=== PATIENT | male | born 1995 | race Caucasian/White ===

== ENCOUNTER 2017-02-25 20:56 | Inpatient (IN) | payer BC ==
[~2017-02-25] VITALS: Ht 175.3 cm; Wt 84.4 kg
[2017-02-25] MEDS ORDERED: FEXO1TAB49 PO (21:26)
[2017-02-25] MEDS ORDERED: PRLSR20 PO (21:26)
[2017-02-25] MEDS ORDERED: SODIUM CHLORIDE 0.9% 1000ML 1,000 ML, SODIUM CHLORIDE 0.9% 1000ML 1,000 ML IV ONE (21:30)
[2017-02-25 21:33] LABS: MANUAL MICROSCOPIC REQUIRED? NO; REVIEW REQ? NO; URINE APPEARANCE CLEAR (CLEAR); URINE BILIRUBIN NEG (NEG); URINE COLOR YELLOW; URINE EPITHELIAL CELL AUTO 0-5 /lpf (0-5); URINE NITRITE NEG (NEG); URINE SPECIFIC GRAVITY 1.016 (1.000-1.030); UROBILINOGEN NEG (NEG); ZZUR CULT IF INDIC CLEAN CATCH NO
[2017-02-25 22:07] LABS: BASO % 0.3 %; BASO ABS # 0.02 K/uL (0-0.2); COMPLETE YES; EOS % 0.1 %; HEMATOCRIT 43.5 % (42-52); IG% 0.4 %; LYMPH % 18.4 %; LYMPH ABS # 1.39 K/uL (1.2-3.4); MEAN CELL VOLUME 87.7 fL (80-100); MEAN CORPUSCULAR HEMOGLOBIN 31.5 pg (25-34); MEAN CORPUSCULAR HGB CONC 35.9 g/dl (32-36); MEAN PLATELET VOLUME 10.8 fL (7.4-10.4); MONO % 6.8 %; PLATELET COUNT 222 K/uL (130-400); RED BLOOD COUNT 4.96 M/uL (4.7-6.1); WHITE BLOOD COUNT 7.54 K/uL (4.8-10.8)
[2017-02-25 22:11] LABS: VEN BLD GAS O2 SATURATION 81.4 %; VEN BLOOD GAS BASE EXCESS 3.1 mEq/L
[2017-02-25 22:24] LABS: BUN/CREATININE RATIO 10.8 (10-20); CALCIUM 9.4 mg/dl (8.5-10.1); MAGNESIUM 1.9 mg/dl (1.8-2.4); POTASSIUM 3.5 mmol/L (3.5-5.1); URIC ACID 6.9 mg/dl (2.6-7.2)
[2017-02-25 22:51] LABS: ALB/GLOB RATIO 1.2 (0.9-2); PHOSPHORUS 3.1 mg/dl (2.5-4.9)
--- NOTE | 2017-02-25 23:49 | EMERGENCY ROOM VISIT NOTE ---
History First contact with patient: 21:03 Chief Complaint: ABNORMAL LABS Stated Complaint: RHYBDOMYOSIS, DISCOLORED URINE History of Present Illness The patient is a 21 year old male who presents to the Emergency Room with complaints of dark urine that began yesterday. The patient describes the urine is very dark/brown. He became concerned and went to [facility] today. He evidently had labs drawn about 4 hours prior to arrival that showed an elevated CK of greater than 20,000. The patient was referred to the ER for further management. The patient states that he has been exercising regularly and working out daily. He has not been taking supplements. The patient considers himself usually healthy. He does not have nausea, vomiting, chest pain, chest tightness, shortness of breath, or abdominal pain. He has not had similar symptoms in the past. He rates his overall discomfort a 2/10. Review of Systems More than 10 systems were reviewed and otherwise negative with the exception of history of present illness. Past Medical/Surgical History No pertinent chronic medical disease Family History No pertinent family history Social History Smoking Status: Never Smoker Occupation Status: [employer] student Current/Historical Medications Scheduled Fexofenadine Hcl (Caro Allergy), 180 MG PO DAILY Omeprazole (Prilosec), 20 MG PO DAILY Physical Exam Vital Signs Date Time Temp Pulse Resp B/P (MAP) Pulse Ox O2 Delivery O2 Flow Rate FiO2 02/25/17 21:00 37.2 106 20 173/112 96 Room Air Physical Exam VITALS: Vitals are noted on the nurse's note and reviewed by myself. Vital signs with mild tachycardia and slight hypertension GENERAL: Well-developed, well-nourished, white male, who is in no acute distress and resting comfortably. Patient is cooperative with the examination. EYES: Pupils equal round and reactive to light and accommodation. Conjunctivae without injection, sclerae without icterus. Extraocular movements intact. NOSE: Patent, turbinates without inflammation or discharge. MOUTH: Mucous membranes moist. Tonsils are not enlarged. Pharynx without erythema, blood, or exudate. Uvula midline. Airway patent. NECK: Supple without nuchal rigidity. No lymphadenopathy. No thyromegaly. Cervical spine is nontender. HEART: Regular rate and rhythm without murmurs gallops or rubs. LUNGS: Clear to auscultation bilaterally without wheezes, rales or rhonchi. No retractions or accessory muscle use. ABDOMEN: Positive normal bowel sounds x 4. Soft, nontender, without masses or organomegaly. No guarding or rebound tenderness. MUSCULOSKELETAL: No muscle atrophy, erythema, or edema noted. Full range of motion without joint tenderness in all extremities. NEURO: Patient was alert and oriented to person place and time. CN II through XII grossly intact. Medical Decision & Procedures Laboratory Results 02/25/17 21:41 Red Blood Count 4.96, Mean Corpuscular Volume 87.7, Mean Corpuscular Hemoglobin 31.5, Mean Corpuscular Hemoglobin Concent 35.9, Mean Platelet Volume 10.8, Neutrophils (%) (Auto) 74.0, Lymphocytes (%) (Auto) 18.4, Monocytes (%) (Auto) 6.8, Eosinophils (%) (Auto) 0.1, Basophils (%) (Auto) 0.3, Neutrophils # (Auto) 5.58, Lymphocytes # (Auto) 1.39, Monocytes # (Auto) 0.51, Eosinophils # (Auto) 0.01, Basophils # (Auto) 0.02 02/25/17 21:41 Test 02/25/17 21:20 02/25/17 21:41 02/25/17 21:49 Urine Color YELLOW Urine Appearance CLEAR (CLEAR) Urine pH 7.0 (4.5-7.5) Urine Specific [place] 1.016 (1.000-1.030) Urine Protein 1+ (NEG) Urine Glucose (UA) NEG (NEG) Urine Ketones NEG (NEG) Urine Occult Blood 3+ (NEG) Urine Nitrite NEG (NEG) Urine Bilirubin NEG (NEG) Urine Urobilinogen NEG (NEG) Urine Leukocyte Esterase NEG (NEG) Urine WBC (Auto) 0 /hpf (0-5) Urine RBC (Auto) 0-4 /hpf (0-4) Urine Hyaline Casts (Auto) 0 /lpf (0-5) Urine Epithelial Cells (Auto) 0-5 /lpf (0-5) Urine Bacteria (Auto) NEG (NEG) White Blood Count 7.54 K/uL (4.8-10.8) Red Blood Count 4.96 M/uL (4.7-6.1) Hemoglobin 15.6 g/dL (14.0-18.0) Hematocrit 43.5 % (42-52) Mean Corpuscular Volume 87.7 fL (80-100) Mean Corpuscular Hemoglobin 31.5 pg (25-34) Mean Corpuscular Hemoglobin Concent 35.9 g/dl (32-36) Platelet Count 222 K/uL (130-400) Mean Platelet Volume 10.8 fL (7.4-10.4) Neutrophils (%) (Auto) 74.0 % Lymphocytes (%) (Auto) 18.4 % Monocytes (%) (Auto) 6.8 % Eosinophils (%) (Auto) 0.1 % Basophils (%) (Auto) 0.3 % Neutrophils # (Auto) 5.58 K/uL (1.4-6.5) Lymphocytes # (Auto) 1.39 K/uL (1.2-3.4) Monocytes # (Auto) 0.51 K/uL (0.11-0.59) Eosinophils # (Auto) 0.01 K/uL (0-0.5) Basophils # (Auto) 0.02 K/uL (0-0.2) RDW Standard Deviation 40.7 fL (36.4-46.3) RDW Coefficient of Variation 12.7 % (11.5-14.5) Immature Granulocyte % (Auto) 0.4 % Immature Granulocyte # (Auto) 0.03 K/uL (0.00-0.02) Anion Gap 8.0 mmol/L (3-11) Est Creatinine Clear Calc Drug Dose 116.9 ml/min Estimated GFR () 124.1 Estimated GFR (Non- 107.1 BUN/Creatinine Ratio 10.8 (10-20) Uric Acid 6.9 mg/dl (2.6-7.2) Calcium Level 9.4 mg/dl (8.5-10.1) Phosphorus Level 3.1 mg/dl (2.5-4.9) Magnesium Level 1.9 mg/dl (1.8-2.4) Total Bilirubin 0.6 mg/dl (0.2-1) Aspartate Amino Transf (AST/SGOT) 1716 U/L (15-37) Alanine Aminotransferase (ALT/SGPT) 386 U/L (12-78) Alkaline Phosphatase 83 U/L (45-117) Total Protein 7.8 gm/dl (6.4-8.2) Albumin 4.3 gm/dl (3.4-5.0) Globulin 3.5 gm/dl (2.5-4.0) Albumin/Globulin Ratio 1.2 (0.9-2) Venous Blood pH 7.46 (7.36-7.41) Venous Blood Partial Pressure CO2 40 mmHg (38.0-50.0) Venous Blood Partial Pressure O2 46 mmHg Venous Blood HCO3 27 mmol/L Venous Blood Oxygen Saturation 81.4 % Venous Blood Base Excess 3.1 mEq/L Medications Administered Medications (Trade) Dose Ordered Sig/Ivy Route Start Time Stop Time Status Last Admin Dose Admin Sodium Chloride/ Sodium Chloride 2,000 ml @ 999 mls/hr Q2H1M ONCE IV 02/25/17 21:30 02/25/17 23:30 DC 02/25/17 21:30 999 MLS/HR ED Course Physical exam and history were performed. Nursing notes, EMR, and Medication List were personally reviewed. Patient appears to have elevated creatinine kinase levels on outpatient labs with dark urine. Clinically the patient appears well. EKG was performed and was sinus rhythm without evidence of ischemia or ectopy. IV access was established and labs were obtained. The patient was aggressively hydrated with a 2 L bolus and then 250 miles per hour. The patient was placed on a radiation monitor. The patient's blood work is above and was reviewed. He does not have significantly elevated white blood cell count, anemia, bandemia, or significant ocular imbalance. His transaminases are elevated and additional blood work is as above. Kidney function appears preserved. Overall the patient does not appear well for discharge home. He has an elevated CK level indicative of rhabdomyolysis. The patient case was discussed with the on-call hospitalist, who agreed to evaluate the patient here in the department. Please see their dictation for further patient course, plan, and disposition. The chart was completed utilizing [employer] Speech Voice Recognition Software. Grammatical errors, random word insertions, pronoun errors, and incomplete sentences are an occasional consequence of this system due to software limitations, ambient noise, and hardware issues. Any formal questions or concerns about the content, text, or information contained within the body of this dictation should be directly addressed to the provider for clarification. . Medical Decision Differential diagnosis includes, but is not limited to: Rhabdomyolysis, liver disease, dehydration, substance abuse/use, infection, and others Impression Primary Impression: Rhabdomyolysis Additional Impression: Elevated LFTs Departure Information Referrals [facility] (PCP) Patient Instructions My [facility] Problem Qualifiers
[2017-02-26] MEDS ORDERED: SODIUM CHLORIDE 0.9% 1000ML 1,000 ML IV ONE
[2017-02-26] MEDS ORDERED: ZOLPIDEM TARTRATE 5 MG TAB PO PRN (00:15)
[2017-02-26] MEDS ORDERED: MAGNESIUM HYDROXIDE SUSP 30 ML UDC PO PRN (00:15)
[2017-02-26] MEDS ORDERED: ACETAMINOPHEN 325 MG TAB PO PRN (00:15)
[2017-02-26] MEDS ORDERED: ONDANSETRON INJ 2 MG/ML 2 ML VIAL IV PRN (00:15)
[2017-02-26] MEDS ORDERED: POLYETHYLENE (MIRALAX) 17 GM PACK PO PRN (00:15)
[2017-02-26] MEDS ORDERED: ALUMINUM/MAGNESIUM/SIMETH (MAALOX MAX) 30 ML UDC PO PRN (00:15)
--- NOTE | 2017-02-26 00:21 | History and Physical ---
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 He notes on Sat he was drinking alcohol from 8am to 10pm for the football game. He has been exercising more than usual. He lifts weights frequently. He noticed muscle aches and dark urine over the weekend, so went to [facility] earlier today around 4pm. He had labwork drawn, but the machine did not work to run the labs immediately. He was called later saying his CPK was 21,000 and to come to the ED. He is tolerating PO fluids and foods. He denies chest pain, shortness of breath, or abdominal pain. He has a history of prostatitis last year, and on an abdominal US was found to have an enlarged spleen. He follows with an Oncologist every 6 mo for this, but reports his last checkup was normal. His platelet count is normal. His LFTs were abnormal. He denies any IV drug use, unprotected sex, and needle sharing. 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 A total of 10 systems reviewed and were otherwise negative. Physical Exam Vital Signs Date Time Temp Pulse Resp B/P (MAP) Pulse Ox O2 Delivery O2 Flow Rate FiO2 02/26/17 00:01 68 18 155/87 98 Room Air 02/25/17 21:00 37.2 106 20 173/112 96 Room Air General Appearance: WD/WN, no apparent distress Head: normocephalic, atraumatic Eyes: normal inspection, PERRL ENT: hearing grossly normal Neck: supple, no JVD Respiratory/Chest: lungs clear, normal breath sounds, no respiratory distress Cardiovascular: regular rate, rhythm, no murmur, normal peripheral pulses Abdomen/GI: normal bowel sounds, soft, + pertinent finding (mild tenderness w/ deep palpation of liver. no noted splenomegaly at this time.) Back: no CVA tenderness, no muscle spasm, normal range of motion Extremities/Musculoskelatal: no calf tenderness, no pedal edema Neurologic/Psych: alert, normal mood/affect, normal reflexes, oriented x 3 Skin: no rash Diagnostics Laboratory Results Results Past 24 Hours Test 02/25/17 21:20 02/25/17 21:41 02/25/17 21:49 02/26/17 00:03 Range/Units Urine Color YELLOW Urine Appearance CLEAR CLEAR Urine pH 7.0 4.5-7.5 Urine Specific [place] 1.016 1.000-1.030 Urine Protein 1+ NEG Urine Glucose (UA) NEG NEG Urine Ketones NEG NEG Urine Occult Blood 3+ NEG Urine Nitrite NEG NEG Urine Bilirubin NEG NEG Urine Urobilinogen NEG NEG Urine Leukocyte Esterase NEG NEG Urine WBC (Auto) 0 0-5 /hpf Urine RBC (Auto) 0-4 0-4 /hpf Urine Hyaline Casts (Auto) 0 0-5 /lpf Urine Epithelial Cells (Auto) 0-5 0-5 /lpf Urine Bacteria (Auto) NEG NEG White Blood Count 7.54 4.8-10.8 K/uL Red Blood Count 4.96 4.7-6.1 M/uL Hemoglobin 15.6 14.0-18.0 g/dL Hematocrit 43.5 42-52 % Mean Corpuscular Volume 87.7 80-100 fL Mean Corpuscular Hemoglobin 31.5 25-34 pg Mean Corpuscular Hemoglobin Concent 35.9 32-36 g/dl Platelet Count 222 130-400 K/uL Mean Platelet Volume 10.8 7.4-10.4 fL Neutrophils (%) (Auto) 74.0 % Lymphocytes (%) (Auto) 18.4 % Monocytes (%) (Auto) 6.8 % Eosinophils (%) (Auto) 0.1 % Basophils (%) (Auto) 0.3 % Neutrophils # (Auto) 5.58 1.4-6.5 K/uL Lymphocytes # (Auto) 1.39 1.2-3.4 K/uL Monocytes # (Auto) 0.51 0.11-0.59 K/uL Eosinophils # (Auto) 0.01 0-0.5 K/uL Basophils # (Auto) 0.02 0-0.2 K/uL RDW Standard Deviation 40.7 36.4-46.3 fL RDW Coefficient of Variation 12.7 11.5-14.5 % Immature Granulocyte % (Auto) 0.4 % Immature Granulocyte # (Auto) 0.03 0.00-0.02 K/uL Sodium Level 141 136-145 mmol/L Potassium Level 3.5 3.5-5.1 mmol/L Chloride Level 104 98-107 mmol/L Carbon Dioxide Level 29 21-32 mmol/L Anion Gap 8.0 3-11 mmol/L Blood Urea Nitrogen 11 7-18 mg/dl Creatinine 1.00 0.60-1.40 mg/dl Est Creatinine Clear Calc Drug Dose 116.9 ml/min Estimated GFR () 124.1 Estimated GFR (Non- 107.1 BUN/Creatinine Ratio 10.8 10-20 Random Glucose 100 70-99 mg/dl Uric Acid 6.9 2.6-7.2 mg/dl Calcium Level 9.4 8.5-10.1 mg/dl Phosphorus Level 3.1 2.5-4.9 mg/dl Magnesium Level 1.9 1.8-2.4 mg/dl Total Bilirubin 0.6 0.2-1 mg/dl Aspartate Amino Transf (AST/SGOT) 1716 15-37 U/L Alanine Aminotransferase (ALT/SGPT) 386 12-78 U/L Alkaline Phosphatase 83 45-117 U/L Total Creatine Kinase 12128 39-308 U/L Total Protein 7.8 6.4-8.2 gm/dl Albumin 4.3 3.4-5.0 gm/dl Globulin 3.5 2.5-4.0 gm/dl Albumin/Globulin Ratio 1.2 0.9-2 Hepatitis B Surface Antigen NEG NEG Monoscreen NEG NEG Venous Blood pH 7.46 7.36-7.41 Venous Blood Partial Pressure CO2 40 38.0-50.0 mmHg Venous Blood Partial Pressure O2 46 mmHg Venous Blood HCO3 27 mmol/L Venous Blood Oxygen Saturation 81.4 % Venous Blood Base Excess 3.1 mEq/L Impression Assessment and Plan 21 yo M w/rhabdomyolysis - likely due to prolonged drinking, new exercise regime , and dehydration. Initial CK in our lab is 85,000. No evidence of renal disfunction. Rhabdomyolysis - IV fluids rehydration at 250mL/hour - Recheck labwork in AM Hypokalemia - PO replacement for now Elevated LFTs - Pattern fits w/alcohol use, but will trend tomorrow. Viral panel pending. - Liver US VTE: Ambulation Full code Med/Surg Attending Addendum: I have physically seen and examined this patient, have directed the resident's medical activities, and agree with the H&P as noted above with the following exceptions as noted. The patient is awake, alert and oriented 3, well-developed and well-nourished , normocephalic and atraumatic, lying in bed and in no acute distress. HEENT--PERRL, EOMI, mucous membranes and oropharynx normal. Neck--supple, no JVD or bruits, thyroid normal, trachea midline, no adenopathy. Heart--normal S1 and S2, no extra beats, no murmurs, rubs or gallops. Lungs--clear bilaterally with good air movement, no respiratory distress, no accessory muscle use. Abdomen--normal bowel sounds and soft, nontender and nondistended, no hernias or masses, no organomegaly. Extremities--no cyanosis, clubbing or edema. There are good distal pulses b/l. Dermatologic--normal skin turgor, normal color, warm and dry, no abnormal lymph nodes, no rash. Neurologic--cranial nerves II through XII grossly intact, motor and sensory examination normal. Rheumatologic--normal range of motion, generally tender muscles. Psychiatric--normal affect. Assessment and Plan: Rhabdomyolysis--total CK is 85,902. Admit to the medical surgical floor. Regular diet. Place on normal saline at 250 ML's per hour. KCl 20 mEq by mouth twice a day. Serial CK enzymes, BMP and magnesium levels. Hepatitis--AST is 1716, ALT is 386. Order a right upper quadrant ultrasound. Adult hepatitis panel ordered and pending. Add ESR, JAMI. Follow serial LFTs. INR test has been added on to ED labs, and returns normal at 1.0. Advised to avoid combination of alcohol and then aggressive exercise afterwards. Level of Care Med/Surg Advanced Directives Existing Advance Directive: No Existing Living Will: No Existing Power of Fancy Stitcher: No Resuscitation Status FULL RESUSCITATION VTE Prophylaxis VTE Risk Assessment Done? Y/N: Yes Risk Level: Moderate Given or contraindicated: SCD's Social Service Consult None Apply Resident Tracking Resident Involvement: Resident Care Provided Care Provided: Adult Hospital Medicine
[2017-02-26 00:26] LABS: PROTHROMBIN TIME (PATIENT) 11.2 SECONDS (9.0-12.0)
[2017-02-26] MEDS ORDERED: POTASSIUM CHLORIDE 10 MEQ TABCR PO STA (00:44)
[2017-02-26 01:39] VITALS: BP 139/89; PULSE 72; TEMP 36.9; O2SAT 99; Ht 175.3 cm; Wt 84.4 kg
[2017-02-26] MEDS: SODIUM CHLORIDE 0.9% 1000ML 1,000 ML IV SCH ×6 (02:30→23:22)
--- NOTE | 2017-02-26 06:45 | DIAGNOSTIC IMAGING REPORT ---
BILIARY ULTRASOUND CLINICAL HISTORY: abnormal LFTs COMPARISON STUDY: No previous studies for comparison. FINDINGS: The pancreas appears sonographically normal. The liver appears sonographically normal. There is no ductal dilatation. The common bile duct measures 3 mm. There is no right-sided hydronephrosis. No gallstones are visualized. There is no gallbladder wall thickening and no pericholecystic fluid. Subtle dependent gallbladder echoes, are likely artifactual. IMPRESSION: Normal biliary ultrasound. Electronically signed by: Yunier Hoffman M.D. 02/26/2017 6:44 AM Dictated Date/Time: 02/26/2017 6:43 AM
[2017-02-26 07:03] VITALS: BP 125/75; PULSE 66; TEMP 36.9; O2SAT 99
[2017-02-26 08:00] VITALS: O2SAT 99
[2017-02-26] MEDS: PANTOprazole SOD 40 MG TAB PO SCH (08:06)
[2017-02-26] MEDS: POTASSIUM CHLORIDE 20 MEQ TABCR PO SCH (08:06)
[2017-02-26] MEDS: FEXOFENADINE HCL 180 MG TAB PO SCH (08:06)
--- NOTE | 2017-02-26 08:37 | Family Medicine Progress Note ---
Progress Note Date of Service Feb 26, 2017. Subjective Pt evaluation today including: conversation w/ patient, physical exam, chart review, lab review, review of studies Found pt talking on the phone, comfortable. Says he has some mild generalized muscle aches (in his legs and chest) but denies any pain. Ongoing voiding overnight with IVF, no reported difficulties. Denies any acute pains, SOB, N/V/ D, or other overnight concerns. Constitutional: No fever, No chills Respiratory: No cough, No shortness of breath Cardiovascular: No chest pain, No edema Abdomen: + pain, No nausea, No vomiting, No diarrhea Musculoskeletal: + muscle pain (generalized, mild) Medications Current Inpatient Medications Medications (Trade) Dose Ordered Sig/Ivy Route Start Time Stop Time Status Last Admin Dose Admin Acetaminophen (Tylenol Tab) 650 mg Q4H PRN PO 02/26/17 00:15 03/28/17 00:14 Al Hydrox/Mg Hydrox/Simethicone (Maalox Max Susp) 15 ml Q4H PRN PO 02/26/17 00:15 03/28/17 00:14 Magnesium Hydroxide (Milk Of Magnesia Susp) 30 ml Q6H PRN PO 02/26/17 00:15 03/28/17 00:14 Polyethylene (Miralax Powder Packet) 17 gm DAILY PRN PO 02/26/17 00:15 03/28/17 00:14 Zolpidem Tartrate (Ambien Tab) 5 mg HSZ PRN PO 02/26/17 00:15 03/28/17 00:14 Ondansetron HCl (Zofran Inj) 4 mg Q6H PRN IV 02/26/17 00:15 03/28/17 00:14 Sodium Chloride 1,000 ml @ 250 mls/hr Q4H IV 02/26/17 02:30 03/28/17 02:29 02/26/17 07:03 250 MLS/HR Potassium Chloride (Klor-Con Tab) 40 meq QAM PO 02/26/17 08:00 03/28/17 08:59 02/26/17 08:06 40 MEQ Fexofenadine HCl (Caro Tab) 180 mg DAILY PO 02/26/17 08:00 03/28/17 08:59 02/26/17 08:06 180 MG Pantoprazole Sodium (Protonix Tab) 40 mg QAM PO 02/26/17 08:00 03/28/17 08:59 02/26/17 08:06 40 MG Objective Vital Signs Date Time Temp Pulse Resp B/P (MAP) Pulse Ox O2 Delivery O2 Flow Rate FiO2 02/26/17 07:03 36.9 66 18 125/75 (92) 99 Room Air 02/26/17 01:39 36.9 72 16 139/89 99 Room Air 02/26/17 00:01 68 18 155/87 98 Room Air 02/25/17 21:00 37.2 106 20 173/112 96 Room Air Physical Exam General Appearance: WD/WN, no apparent distress Respiratory/Chest: lungs clear, normal breath sounds, no respiratory distress Cardiovascular: regular rate, rhythm, no edema, no murmur Abdomen: normal bowel sounds, non tender, soft Extremities: normal range of motion, non-tender, no calf tenderness Laboratory Results 02/25/17 21:41 Red Blood Count 4.96, Mean Corpuscular Volume 87.7, Mean Corpuscular Hemoglobin 31.5, Mean Corpuscular Hemoglobin Concent 35.9, Mean Platelet Volume 10.8, Neutrophils (%) (Auto) 74.0, Lymphocytes (%) (Auto) 18.4, Monocytes (%) (Auto) 6.8, Eosinophils (%) (Auto) 0.1, Basophils (%) (Auto) 0.3, Neutrophils # (Auto) 5.58, Lymphocytes # (Auto) 1.39, Monocytes # (Auto) 0.51, Eosinophils # (Auto) 0.01, Basophils # (Auto) 0.02 02/25/17 21:41 Test 02/25/17 21:20 02/25/17 21:41 02/25/17 21:49 02/26/17 00:03 Urine Color YELLOW Urine Appearance CLEAR (CLEAR) Urine pH 7.0 (4.5-7.5) Urine Specific [place] 1.016 (1.000-1.030) Urine Protein 1+ (NEG) Urine Glucose (UA) NEG (NEG) Urine Ketones NEG (NEG) Urine Occult Blood 3+ (NEG) Urine Nitrite NEG (NEG) Urine Bilirubin NEG (NEG) Urine Urobilinogen NEG (NEG) Urine Leukocyte Esterase NEG (NEG) Urine WBC (Auto) 0 /hpf (0-5) Urine RBC (Auto) 0-4 /hpf (0-4) Urine Hyaline Casts (Auto) 0 /lpf (0-5) Urine Epithelial Cells (Auto) 0-5 /lpf (0-5) Urine Bacteria (Auto) NEG (NEG) White Blood Count 7.54 K/uL (4.8-10.8) Red Blood Count 4.96 M/uL (4.7-6.1) Hemoglobin 15.6 g/dL (14.0-18.0) Hematocrit 43.5 % (42-52) Mean Corpuscular Volume 87.7 fL (80-100) Mean Corpuscular Hemoglobin 31.5 pg (25-34) Mean Corpuscular Hemoglobin Concent 35.9 g/dl (32-36) Platelet Count 222 K/uL (130-400) Mean Platelet Volume 10.8 fL (7.4-10.4) Neutrophils (%) (Auto) 74.0 % Lymphocytes (%) (Auto) 18.4 % Monocytes (%) (Auto) 6.8 % Eosinophils (%) (Auto) 0.1 % Basophils (%) (Auto) 0.3 % Neutrophils # (Auto) 5.58 K/uL (1.4-6.5) Lymphocytes # (Auto) 1.39 K/uL (1.2-3.4) Monocytes # (Auto) 0.51 K/uL (0.11-0.59) Eosinophils # (Auto) 0.01 K/uL (0-0.5) Basophils # (Auto) 0.02 K/uL (0-0.2) RDW Standard Deviation 40.7 fL (36.4-46.3) RDW Coefficient of Variation 12.7 % (11.5-14.5) Immature Granulocyte % (Auto) 0.4 % Immature Granulocyte # (Auto) 0.03 K/uL (0.00-0.02) Anion Gap 8.0 mmol/L (3-11) Est Creatinine Clear Calc Drug Dose 116.9 ml/min Estimated GFR () 124.1 Estimated GFR (Non- 107.1 BUN/Creatinine Ratio 10.8 (10-20) Uric Acid 6.9 mg/dl (2.6-7.2) Calcium Level 9.4 mg/dl (8.5-10.1) Phosphorus Level 3.1 mg/dl (2.5-4.9) Magnesium Level 1.9 mg/dl (1.8-2.4) Total Bilirubin 0.6 mg/dl (0.2-1) Aspartate Amino Transf (AST/SGOT) 1716 U/L (15-37) Alanine Aminotransferase (ALT/SGPT) 386 U/L (12-78) Alkaline Phosphatase 83 U/L (45-117) Total Creatine Kinase 12209 U/L (39-308) Total Protein 7.8 gm/dl (6.4-8.2) Albumin 4.3 gm/dl (3.4-5.0) Globulin 3.5 gm/dl (2.5-4.0) Albumin/Globulin Ratio 1.2 (0.9-2) Hepatitis B Surface Antigen NEG (NEG) Hepatitis C Antibody NEG (NEG) Monoscreen NEG (NEG) Venous Blood pH 7.46 (7.36-7.41) Venous Blood Partial Pressure CO2 40 mmHg (38.0-50.0) Venous Blood Partial Pressure O2 46 mmHg Venous Blood HCO3 27 mmol/L Venous Blood Oxygen Saturation 81.4 % Venous Blood Base Excess 3.1 mEq/L Erythrocyte Sedimentation Rate 2 mm/hr (0-14) Prothrombin Time 11.2 SECONDS (9.0-12.0) Prothromb Time International Ratio 1.0 (0.9-1.1) Activated Partial Thromboplast Time 25.8 SECONDS (21.0-31.0) Partial Thromboplastin Ratio 1.0 Acetaminophen Level < 2 ug/ml (10-30) Assessment and Plan 21 yo male admitted early AM of 19Sep with rhabdomyolysis. Rhabdomyolysis: Likely due to prolonged alcohol drinking, new exercise regime, and dehydration. Initial CK in our lab is >85,000. Initial Cr 1.0. Urine "positive" for occult blood but no WBC or RBCs seen. 1+ proteinuria. - Continue NS IVF at 250 mL/hr. - Replenish KCl with 20 mEq PO BID. [ [ Recheck labwork around noon on 19Sep. - Rec'd avoid alcohol use followed by aggressive exercise. Hypokalemia: 3.5 on admit. - PO replacement for now. Elevated LFTs: Noted on admit with AST >> ALT, suggestive of alcohol use. INR 1.0. - 19Sep RUQ u/s was normal. - Hepatitis Bs antigen, Hepatitis C negative. Monoscreen negative. [ ] Hepatitis A IgM Ab and Hep B core IgM Ab pending. [ ] ESR pending [ ] LFT recheck pending for noon on 19Sep. VTE: Ambulation Full code STARLA, PGY1 De Alcholizer Tracking Resident Involvement: Resident Care Provided Care Provided: Adult Hospital Medicine (inpt rounds) Reviewed: Pt Seen/Exam by Me History arms and thigh still sore but overall feeling better Constitutional: denies: fever Respiratory: negative: short of breath Cardiovascular: denies chest pain General Appearance: no apparent distress Respiratory: lungs clear, no respiratory distress Cardiovascular: regular rate, rhythm Neurologic/Psychiatric: alert, oriented x 3 Skin Characteristics: warm/dry Assessment/Plan Resident Physician Supervision Note: I was present with Dr. Brunner in bedside. I verified the shepherd history and physical, reviewed labs and image studies, discussed the case with the resident and agree with the findings and care plan.
[2017-02-26 12:53] LABS: BUN/CREATININE RATIO 11.8 (10-20); CALCIUM 9.2 mg/dl (8.5-10.1); CREATININE 0.83 mg/dl (0.60-1.40); POTASSIUM 4.2 mmol/L (3.5-5.1)
[2017-02-26 13:19] LABS: ALB/GLOB RATIO 1.3 (0.9-2)
[2017-02-26 15:54] VITALS: BP 135/79; PULSE 72; TEMP 36.7; O2SAT 96
[2017-02-26 16:00] VITALS: O2SAT 99
[2017-02-26 23:29] VITALS: BP 136/86; PULSE 59; TEMP 36.4; O2SAT 99
[2017-02-27] MEDS: SODIUM CHLORIDE 0.9% 1000ML 1,000 ML IV SCH ×3 (05:01→16:51)
--- NOTE | 2017-02-27 05:39 | Family Medicine Progress Note ---
Progress Note Date of Service Feb 27, 2017. Subjective Pt evaluation today including: conversation w/ patient, physical exam, chart review, lab review Found pt resting comfortably in bed. Says he's generally unchanged from yesterday. Still has some generalized muscle aches, a bit improved, but no focal weakness. Denies focal pains, CP, SOB. Says he continues to void a lot with the IVF. No acute concerns. Constitutional: No fever, No chills Respiratory: No cough, No shortness of breath Cardiovascular: No chest pain, No edema Abdomen: No pain, No nausea, No vomiting, No diarrhea Musculoskeletal: + muscle pain (improving) Neurologic: No weakness, No numbness/tingling Medications Current Inpatient Medications Medications (Trade) Dose Ordered Sig/Ivy Route Start Time Stop Time Status Last Admin Dose Admin Acetaminophen (Tylenol Tab) 650 mg Q4H PRN PO 02/26/17 00:15 03/28/17 00:14 Al Hydrox/Mg Hydrox/Simethicone (Maalox Max Susp) 15 ml Q4H PRN PO 02/26/17 00:15 03/28/17 00:14 Magnesium Hydroxide (Milk Of Magnesia Susp) 30 ml Q6H PRN PO 02/26/17 00:15 03/28/17 00:14 Polyethylene (Miralax Powder Packet) 17 gm DAILY PRN PO 02/26/17 00:15 03/28/17 00:14 Zolpidem Tartrate (Ambien Tab) 5 mg HSZ PRN PO 02/26/17 00:15 03/28/17 00:14 Ondansetron HCl (Zofran Inj) 4 mg Q6H PRN IV 02/26/17 00:15 03/28/17 00:14 Sodium Chloride 1,000 ml @ 175 mls/hr Q5H43M IV 02/26/17 02:30 03/28/17 02:29 02/27/17 05:01 175 MLS/HR Potassium Chloride (Klor-Con Tab) 40 meq QAM PO 02/26/17 08:00 03/28/17 08:59 02/26/17 08:06 40 MEQ Fexofenadine HCl (Caro Tab) 180 mg DAILY PO 02/26/17 08:00 03/28/17 08:59 02/26/17 08:06 180 MG Pantoprazole Sodium (Protonix Tab) 40 mg QAM PO 02/26/17 08:00 03/28/17 08:59 02/26/17 08:06 40 MG Objective Vital Signs Date Time Temp Pulse Resp B/P (MAP) Pulse Ox O2 Delivery O2 Flow Rate FiO2 02/27/17 07:18 36.7 68 20 129/74 (92) 98 Room Air 02/27/17 00:00 Room Air 02/26/17 23:29 36.4 59 18 136/86 (103) 99 Room Air 02/26/17 16:00 99 Room Air 02/26/17 15:54 36.7 72 18 135/79 (97) 96 Room Air 02/26/17 08:00 99 Room Air Physical Exam General Appearance: WD/WN, no apparent distress Respiratory/Chest: lungs clear, normal breath sounds, no respiratory distress Cardiovascular: regular rate, rhythm, no edema, no murmur Abdomen: normal bowel sounds, non tender, soft Extremities: non-tender, no pedal edema, no calf tenderness Laboratory Results 02/27/17 06:27 Test 02/27/17 06:27 Anion Gap 7.0 mmol/L (3-11) Est Creatinine Clear Calc Drug Dose 135.9 ml/min Estimated GFR () 143.7 Estimated GFR (Non- 124.0 BUN/Creatinine Ratio 11.9 (10-20) Calcium Level 8.6 mg/dl (8.5-10.1) Total Bilirubin 0.5 mg/dl (0.2-1) Aspartate Amino Transf (AST/SGOT) 895 U/L (15-37) Alanine Aminotransferase (ALT/SGPT) 307 U/L (12-78) Alkaline Phosphatase 61 U/L (45-117) Total Creatine Kinase 09337 U/L (39-308) Total Protein 6.1 gm/dl (6.4-8.2) Albumin 3.4 gm/dl (3.4-5.0) Globulin 2.7 gm/dl (2.5-4.0) Albumin/Globulin Ratio 1.3 (0.9-2) Assessment and Plan 21 yo male admitted early AM of 19Sep with rhabdomyolysis. Rhabdomyolysis: Likely due to prolonged alcohol drinking, new exercise regime, and dehydration. Initial CK in our lab is > 85,000. Initial Cr 1.0. Urine "positive" for occult blood but no WBC or RBCs seen. 1+ proteinuria. ESR 2. - CK trend has been 85K -> 58K -> 34K. On IVF and tolerating PO. Cr remains normal. - Rec'd avoid alcohol use followed by aggressive exercise. Hypokalemia: 3.5 on admit. Replenish KCl with 20 mEq PO BID. Resolved on recheck. Elevated LFTs: Noted on admit with AST >> ALT, suggestive of alcohol use. INR 1.0. - 19Sep RUQ u/s was normal. - Hepatitis Bs antigen, Hepatitis C negative. Monoscreen negative. Hepatitis A IgM Ab and Hep B core IgM Ab non-reactive. - Transaminitis trending downwards on serial recheck. VTE: Ambulation Full code Will discuss all the above on attending rounds this morning. STARLA, PGY1 Monument Setter Helper Tracking Resident Involvement: Resident Care Provided Care Provided: Adult Hospital Medicine (inpt rounds) Reviewed: Pt Seen/Exam by Me History No new concern body soreness improving. Constitutional: denies: fever Respiratory: negative: short of breath Cardiovascular: denies chest pain General Appearance: no apparent distress Respiratory: lungs clear, no respiratory distress Cardiovascular: regular rate, rhythm Neurologic/Psychiatric: alert, oriented x 3 Skin Characteristics: warm/dry Assessment/Plan Resident Physician Supervision Note: I was present with Dr. Brunner in bedside. I verified the shepherd history and physical, reviewed labs and image studies, discussed the case with the resident and agree with the findings and care plan.
[2017-02-27 07:18] VITALS: BP 129/74; PULSE 68; TEMP 36.7; O2SAT 98
[2017-02-27 07:20] LABS: BUN/CREATININE RATIO 11.9 (10-20); CALCIUM 8.6 mg/dl (8.5-10.1); CREATININE 0.86 mg/dl (0.60-1.40); POTASSIUM 4.3 mmol/L (3.5-5.1)
[2017-02-27 07:46] LABS: ALB/GLOB RATIO 1.3 (0.9-2)
[2017-02-27] MEDS: FEXOFENADINE HCL 180 MG TAB PO SCH (08:18)
[2017-02-27] MEDS: POTASSIUM CHLORIDE 20 MEQ TABCR PO SCH (08:18)
[2017-02-27] MEDS: PANTOprazole SOD 40 MG TAB PO SCH (08:18)
[2017-02-27 15:21] VITALS: BP 130/74; PULSE 69; TEMP 36.6; O2SAT 99
[2017-02-27] MEDS ORDERED: INFLUENZA ADMINISTRATION CHARGE ONE (15:45)
[2017-02-27] MEDS ORDERED: INFLUENZA VIRUS QUAD VACCINE 0.5 ML SYR IM. ONE (15:45)
[2017-02-27 23:21] VITALS: BP 125/77; PULSE 67; TEMP 37; O2SAT 99
--- NOTE | 2017-02-28 05:36 | Family Medicine Progress Note ---
Progress Note Date of Service Feb 28, 2017. Subjective Pt evaluation today including: conversation w/ patient, physical exam, chart review, lab review Found pt resting comfortably. Says his generalized aches continue to improve. No difficulty voiding. No new sx over past 24 hours, denies CP, SOB, abd pain, or acute c/o. Constitutional: No fever, No chills Respiratory: No cough, No shortness of breath Cardiovascular: No chest pain, No edema Abdomen: No pain, No nausea, No vomiting, No diarrhea Medications Current Inpatient Medications Medications (Trade) Dose Ordered Sig/Ivy Route Start Time Stop Time Status Last Admin Dose Admin Acetaminophen (Tylenol Tab) 650 mg Q4H PRN PO 02/26/17 00:15 03/28/17 00:14 Al Hydrox/Mg Hydrox/Simethicone (Maalox Max Susp) 15 ml Q4H PRN PO 02/26/17 00:15 03/28/17 00:14 Magnesium Hydroxide (Milk Of Magnesia Susp) 30 ml Q6H PRN PO 02/26/17 00:15 03/28/17 00:14 Polyethylene (Miralax Powder Packet) 17 gm DAILY PRN PO 02/26/17 00:15 03/28/17 00:14 Zolpidem Tartrate (Ambien Tab) 5 mg HSZ PRN PO 02/26/17 00:15 03/28/17 00:14 Ondansetron HCl (Zofran Inj) 4 mg Q6H PRN IV 02/26/17 00:15 03/28/17 00:14 Sodium Chloride 1,000 ml @ 175 mls/hr Q5H43M IV 02/26/17 02:30 03/28/17 02:29 02/28/17 00:00 175 MLS/HR Potassium Chloride (Klor-Con Tab) 40 meq QAM PO 02/26/17 08:00 03/28/17 08:59 02/27/17 08:18 40 MEQ Fexofenadine HCl (Caro Tab) 180 mg DAILY PO 02/26/17 08:00 03/28/17 08:59 02/27/17 08:18 180 MG Pantoprazole Sodium (Protonix Tab) 40 mg QAM PO 02/26/17 08:00 03/28/17 08:59 02/27/17 08:18 40 MG Objective Vital Signs Date Time Temp Pulse Resp B/P (MAP) Pulse Ox O2 Delivery O2 Flow Rate FiO2 02/28/17 07:12 36.7 53 18 114/69 (84) 99 Room Air 02/28/17 00:21 Room Air 02/27/17 23:21 37.0 67 18 125/77 (93) 99 Room Air 02/27/17 20:05 Room Air 02/27/17 15:54 Room Air 02/27/17 15:21 36.6 69 18 130/74 (92) 99 Room Air 02/27/17 08:01 Room Air 02/27/17 07:18 36.7 68 20 129/74 (92) 98 Room Air Physical Exam General Appearance: no apparent distress Respiratory/Chest: lungs clear, normal breath sounds, no respiratory distress Cardiovascular: regular rate, rhythm, no edema, no murmur Abdomen: normal bowel sounds, non tender, soft Extremities: no pedal edema Laboratory Results 02/28/17 05:33 Test 02/28/17 05:33 Anion Gap 5.0 mmol/L (3-11) Est Creatinine Clear Calc Drug Dose 139.2 ml/min Estimated GFR () 145.1 Estimated GFR (Non- 125.2 BUN/Creatinine Ratio 13.5 (10-20) Calcium Level 8.7 mg/dl (8.5-10.1) Total Bilirubin 0.6 mg/dl (0.2-1) Aspartate Amino Transf (AST/SGOT) 582 U/L (15-37) Alanine Aminotransferase (ALT/SGPT) 275 U/L (12-78) Alkaline Phosphatase 63 U/L (45-117) Total Creatine Kinase 85650 U/L (39-308) Total Protein 6.1 gm/dl (6.4-8.2) Albumin 3.4 gm/dl (3.4-5.0) Globulin 2.7 gm/dl (2.5-4.0) Albumin/Globulin Ratio 1.3 (0.9-2) Assessment and Plan 21 yo male admitted early AM of 19Sep with rhabdomyolysis. Rhabdomyolysis: Likely due to prolonged alcohol drinking, new exercise regime, and dehydration. Initial CK in our lab is > 85,000. Initial Cr 1.0. Urine "positive" for occult blood but no WBC or RBCs seen. 1+ proteinuria. ESR 2. - CK trend has been 85K -> 58K -> 34K -> 13K. Continue IVF and tolerating PO. Cr remains normal. - Rec'd avoid alcohol use followed by aggressive exercise. Hypokalemia: 3.5 on admit. Replenish KCl with 20 mEq PO BID. Resolved on serial recheck. Elevated LFTs: Noted on admit with AST >> ALT, suggestive of alcohol use. INR 1.0. - 19Sep RUQ u/s was normal. - Hepatitis Bs antigen and Hep B core IgM Ab non-reactive. Hepatitis C negative. Monoscreen negative. Hepatitis A IgM Ab non-reactive. - Transaminitis trending downwards on serial recheck. VTE: Ambulation Full code J, PGY1 Drying Supervisor Tracking Resident Involvement: Resident Care Provided Care Provided: Adult Hospital Medicine (inpt rounds) Reviewed: Pt Seen/Exam by Me History no concerns Constitutional: denies: fever Respiratory: negative: short of breath Cardiovascular: denies chest pain General Appearance: no apparent distress Respiratory: lungs clear, no respiratory distress Cardiovascular: regular rate, rhythm Neurologic/Psychiatric: alert, oriented x 3 Skin Characteristics: warm/dry Assessment/Plan Resident Physician Supervision Note: I was present with Dr. Brunner in bedside. I verified the shepherd history and physical, reviewed labs and image studies, discussed the case with the resident and agree with the findings and care plan.
[2017-02-28 06:56] LABS: BUN/CREATININE RATIO 13.5 (10-20); CALCIUM 8.7 mg/dl (8.5-10.1); CREATININE 0.84 mg/dl (0.60-1.40); POTASSIUM 3.9 mmol/L (3.5-5.1)
[2017-02-28 07:12] VITALS: BP 114/69; PULSE 53; TEMP 36.7; O2SAT 99
[2017-02-28 07:26] LABS: ALB/GLOB RATIO 1.3 (0.9-2)
[2017-02-28] MEDS: FEXOFENADINE HCL 180 MG TAB PO SCH (08:15)
[2017-02-28] MEDS: PANTOprazole SOD 40 MG TAB PO SCH (08:15)
[2017-02-28] MEDS: POTASSIUM CHLORIDE 20 MEQ TABCR PO SCH (08:16)
[2017-02-28] MEDS: SODIUM CHLORIDE 0.9% 1000ML 1,000 ML IV SCH ×4 (09:40→21:55)
--- NOTE | 2017-02-28 13:26 | Discharge Instructions ---
Discharge Instructions Date of Service Feb 28, 2017. Admission Reason for Admission: Rhabdomyolysis Discharge Discharge Diagnosis / Problem: Rhabdomyolysis Discharge Goals Goal(s): Learn about illness Activity Recommendations Activity Limitations: per Instructions/Follow-up section . Instructions / Follow-Up Instructions / Follow-Up You were admitted to the hospital for a disease called rhabdomyolysis. This is when there is excessive muscle cell destruction, often from over-exertion in combination with other factors like decreased water intake and increased alcohol intake. Beyond the risk to your muscles, often your kidneys cannot handle all the muscle cells dying at once, which can cause serious illness in itself. You were also noted to have elevated liver enzymes, also likely a result of dehydration combined with alcohol use. This demonstrates the dangers of combining these two activities and should be definitely avoided in the future. You were treated here with a lot of IV fluid. Please continue to stay hydrated for the next few days to help your kidneys continue to work well and efficiently. Also avoid strenuous activity until your muscle soreness has completely resolved, then start back to exercise slowly. Follow up with your primary care provider for routine post-hospital care and further discussion on how to avoid this again, including for final testing of your blood work (creatine kinase level). Return to the nearest emergency department if you notice any return of dark or bloody urine, any abdominal or back pain, new fever, acutely worsening muscle pain, or any other acute concerns. Current Hospital Diet Patient's current hospital diet: Regular Diet Discharge Diet Recommended Diet: Regular Diet Pending Studies Studies pending at discharge: no Medical Emergencies . Who to Call and When: Medical Emergencies: If at any time you feel your situation is an emergency, please call 911 immediately. . Non-Emergent Contact Non-Emergency issues call your: Primary Care Provider . . "Provider Documentation" section prepared by Jason Brunner. . VTE Core Measure Inpt VTE Proph given/why not?: Other Anticoagulation (frequent ambulation), SCD 's
--- NOTE | 2017-02-28 13:28 | Discharge Summary ---
Discharge Summary Date of Service Feb 28, 2017. Discharge Summary Admission Date: Feb 26, 2017 at 00:13 Discharge Date: Mar 01, 2017 Discharge Disposition: Home Principal Diagnosis: Rhabdomyolysis Problems/Secondary Diagnoses: Elevated liver function enzymes Immunizations: Have You Had Influenza Vaccine: Unknown History of Tetanus Vaccine?: Unknown History of Pneumococcal: No History of Hepatitis B Vaccine: Unknown Procedures: 26Feb2017 BILIARY ULTRASOUND CLINICAL HISTORY: abnormal LFTs IMPRESSION: Normal biliary ultrasound. Consultations: None. Medication Reconciliation Continued Medications: Fexofenadine Hcl (Caro Allergy) 180 Mg Tab 180 MG PO DAILY, TAB Omeprazole (Prilosec) 20 Mg Capcr 20 MG PO DAILY, CAP Discharge Exam Review of Systems: Constitutional: No fever, No chills Respiratory: No cough, No shortness of breath Cardiovascular: No chest pain, No edema Abdomen: No pain, No nausea, No vomiting, No diarrhea Musculoskeletal: + muscle pain (improving) Genitourinary - Female: No dysuria, No urinary frequency, No urinary urgency , No hematuria Integumentary: No rash Physical Exam: General Appearance: WD/WN, no apparent distress Respiratory/Chest: lungs clear, normal breath sounds, no respiratory distress Cardiovascular: regular rate, rhythm, no edema, no murmur Abdomen / GI: normal bowel sounds, non tender, soft Extremities: normal inspection, no calf tenderness, no pedal edema Skin: warm/dry Hospital Course HPI at time of admission on [id number] 21 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 He notes on Sat he was drinking alcohol from 8am to 10pm for the football game. He has been exercising more than usual. He lifts weights frequently. He noticed muscle aches and dark urine over the weekend, so went to [facility] earlier today around 4pm. He had labwork drawn, but the machine did not work to run the labs immediately. He was called later saying his CPK was 21,000 and to come to the ED. He is tolerating PO fluids and foods. He denies chest pain, shortness of breath, or abdominal pain. He has a history of prostatitis last year, and on an abdominal US was found to have an enlarged spleen. He follows with an Oncologist every 6 mo for this, but reports his last checkup was normal. His platelet count is normal. His LFTs were abnormal. He denies any IV drug use, unprotected sex, and needle sharing. Plan on day of discharge - [id number] 21 yo male was admitted early AM of 19Sep with rhabdomyolysis, likely due to prolonged alcohol drinking, new exercise regime, and dehydration. Initial CK in our lab is > 85,000. Initial Cr 1.0. Urine "positive" for occult blood but no WBC or RBCs seen. 1+ proteinuria. ESR 2. Pt was tx'ed with aggressive IVF , tailored down as CK improved. CK trended downwards to 5411 at time of d/c. Tolerated PO and Cr remained normal throughout this time. Discussed causes of rhabdo with pt and rec'd avoidance of alcohol use followed by aggressive exercise. - Rec'd ongoing good hydration and rest until sx completely resolved. - Rec'd close f/u with PCM (within next week) for re-evaluation and final recheck of CK. Hypokalemia: Noted at 3.5 on admit. Replenished with PO KCl. Resolved on serial recheck. Elevated LFTs: Noted on admit with AST 1398 and ALT 361 (AST >> ALT, suggestive of alcohol use). INR 1.0. 19Sep RUQ u/s was normal. Hepatitis Bs antigen and Hep B core IgM Ab non-reactive. Hepatitis C negative. Monoscreen negative. Hepatitis A IgM Ab non-reactive. - Transaminitis trended downwards on serial recheck. - Discussed impact of alcohol use on the liver with pt, rec'd avoiding excessive drinking. - Rec'd f/u with PCM about this as well. Total Time Spent: Less than 30 minutes This includes examination of the patient, discharge planning, medication reconciliation, and communication with other providers. Discharge Instructions Please refer to the electronic Patient Visit Report (Discharge Instructions) for additional information. Follow-Up With primary care provider at [facility].
[2017-02-28 15:50] VITALS: BP 126/70; PULSE 68; TEMP 36.5; O2SAT 94
[2017-02-28 23:30] VITALS: BP 135/76; PULSE 66; TEMP 36.8; O2SAT 99
[2017-03-01] MEDS: SODIUM CHLORIDE 0.9% 1000ML 1,000 ML IV SCH ×2 (03:41→09:53)
--- NOTE | 2017-03-01 05:37 | Family Medicine Progress Note ---
Progress Note Date of Service Mar 01, 2017. Subjective Pt evaluation today including: conversation w/ patient, physical exam, chart review, lab review Found pt resting in his bed. Says overall muscle aches have greatly improved, only some discomfort in pectoral area now. Denies other concerns (including CP , SOB, abd pain, N/V) or acute issues. Constitutional: No fever, No chills Respiratory: No cough, No shortness of breath Cardiovascular: No chest pain, No edema Abdomen: No pain, No nausea, No vomiting, No diarrhea Musculoskeletal: + muscle pain (much improved), No calf pain Neurologic: No weakness, No numbness/tingling Medications Current Inpatient Medications Medications (Trade) Dose Ordered Sig/Ivy Route Start Time Stop Time Status Last Admin Dose Admin Acetaminophen (Tylenol Tab) 650 mg Q4H PRN PO 02/26/17 00:15 03/28/17 00:14 Al Hydrox/Mg Hydrox/Simethicone (Maalox Max Susp) 15 ml Q4H PRN PO 02/26/17 00:15 03/28/17 00:14 Magnesium Hydroxide (Milk Of Magnesia Susp) 30 ml Q6H PRN PO 02/26/17 00:15 03/28/17 00:14 Polyethylene (Miralax Powder Packet) 17 gm DAILY PRN PO 02/26/17 00:15 03/28/17 00:14 Zolpidem Tartrate (Ambien Tab) 5 mg HSZ PRN PO 02/26/17 00:15 03/28/17 00:14 Ondansetron HCl (Zofran Inj) 4 mg Q6H PRN IV 02/26/17 00:15 03/28/17 00:14 Sodium Chloride 1,000 ml @ 175 mls/hr Q5H43M IV 02/26/17 02:30 03/28/17 02:29 03/01/17 03:41 175 MLS/HR Potassium Chloride (Klor-Con Tab) 40 meq QAM PO 02/26/17 08:00 03/28/17 08:59 02/28/17 08:16 40 MEQ Fexofenadine HCl (Caro Tab) 180 mg DAILY PO 02/26/17 08:00 03/28/17 08:59 02/28/17 08:15 180 MG Pantoprazole Sodium (Protonix Tab) 40 mg QAM PO 02/26/17 08:00 03/28/17 08:59 02/28/17 08:15 40 MG Objective Vital Signs Date Time Temp Pulse Resp B/P (MAP) Pulse Ox O2 Delivery O2 Flow Rate FiO2 03/01/17 07:18 36.5 68 16 121/75 (90) 99 Room Air 03/01/17 00:05 Room Air 02/28/17 23:30 36.8 66 18 135/76 (95) 99 Room Air 02/28/17 16:00 Room Air 02/28/17 15:50 36.5 68 18 126/70 (88) 94 Room Air 02/28/17 08:22 Room Air Physical Exam General Appearance: WD/WN, no apparent distress Respiratory/Chest: lungs clear, normal breath sounds, no respiratory distress Cardiovascular: regular rate, rhythm, no edema, no murmur Abdomen: normal bowel sounds, non tender, soft Extremities: non-tender, no pedal edema Skin: warm/dry Laboratory Results 03/01/17 07:16 Test 03/01/17 07:16 Anion Gap 7.0 mmol/L (3-11) Est Creatinine Clear Calc Drug Dose 139.2 ml/min Estimated GFR () 145.1 Estimated GFR (Non- 125.2 BUN/Creatinine Ratio 12.1 (10-20) Calcium Level 9.0 mg/dl (8.5-10.1) Total Bilirubin 0.3 mg/dl (0.2-1) Aspartate Amino Transf (AST/SGOT) 321 U/L (15-37) Alanine Aminotransferase (ALT/SGPT) 231 U/L (12-78) Alkaline Phosphatase 63 U/L (45-117) Total Creatine Kinase 6054 U/L (39-308) Total Protein 6.2 gm/dl (6.4-8.2) Albumin 3.5 gm/dl (3.4-5.0) Globulin 2.7 gm/dl (2.5-4.0) Albumin/Globulin Ratio 1.3 (0.9-2) Assessment and Plan 21 yo male admitted early AM of 19Sep with rhabdomyolysis. Rhabdomyolysis: Likely due to prolonged alcohol drinking, new exercise regime, and dehydration. Initial CK in our lab is > 85,000. Initial Cr 1.0. Urine "positive" for occult blood but no WBC or RBCs seen. 1+ proteinuria. ESR 2. - CK trend has been 85K -> 58K -> 34K -> 13K -> 6K Goal < 5K for d/c. Continue IVF and tolerating PO. Cr remains normal. - Rec'd avoid alcohol use followed by aggressive exercise. Hypokalemia: 3.5 on admit. Replenish KCl with 20 mEq PO BID. Resolved on serial recheck. Elevated LFTs: Noted on admit with AST >> ALT, suggestive of alcohol use. INR 1.0. - 19Sep RUQ u/s was normal. - Hepatitis Bs antigen and Hep B core IgM Ab non-reactive. Hepatitis C negative. Monoscreen negative. Hepatitis A IgM Ab non-reactive. - Transaminitis trending downwards on serial recheck. VTE: Ambulation Full code Will discuss all the above on attending rounds this morning. Kanwal, PGY1 Jockey Room Custodian Tracking Resident Involvement: Resident Care Provided Care Provided: Adult Hospital Medicine (inpt rounds) Reviewed: Pt Seen/Exam by Me History no more body aches. Constitutional: denies: fever Respiratory: negative: short of breath Cardiovascular: denies chest pain Gastrointestinal/Abdominal: negative: abdominal pain General Appearance: no apparent distress Respiratory: lungs clear, no respiratory distress Cardiovascular: regular rate, rhythm Neurologic/Psychiatric: alert, oriented x 3 Skin Characteristics: warm/dry Assessment/Plan Resident Physician Supervision Note: I was present with Dr. Brunner in bedside. I verified the shepherd history and physical, reviewed labs and image studies, discussed the case with the resident and agree with the findings and care plan. Discharge home later today after finishing current bag of IVF. Recheck labs in 3-4 days No exercise until evaluated by PCP. took 35min to discharge.
[2017-03-01 07:18] VITALS: BP 121/75; PULSE 68; TEMP 36.5; O2SAT 99
[2017-03-01 08:14] LABS: BUN/CREATININE RATIO 12.1 (10-20); CREATININE 0.84 mg/dl (0.60-1.40); POTASSIUM 3.9 mmol/L (3.5-5.1)
[2017-03-01 08:28] LABS: ALB/GLOB RATIO 1.3 (0.9-2)
[2017-03-01] MEDS: PANTOprazole SOD 40 MG TAB PO SCH (08:30)
[2017-03-01] MEDS: FEXOFENADINE HCL 180 MG TAB PO SCH (08:30)
[2017-03-01] MEDS: POTASSIUM CHLORIDE 20 MEQ TABCR PO SCH (08:31)
[2017-03-01] MEDS ORDERED: NURSING VERBAL MED ORDER ONE (12:30)
[2017-03-01 15:13] VITALS: BP 143/76; PULSE 75; TEMP 36.7; O2SAT 97
[2017-03-01 17:33] VITALS: BP 143/76; PULSE 75; TEMP 36.7; O2SAT 97
== END 2017-03-01 19:10 | disposition home or self-care (01) | DRG 558 ==
LOC: C.EDB 20:59 → C.MS4W 02-26 00:13 → ENRESERV 02-26 00:51 → CANRESERV 02-26 00:56 → ENRESERV 02-26 00:57 → CMPBEDREQ 02-26 02:45
PROVIDERS: ADMIT Hospitalist; ATTEND Family Medicine
DX: M62.82 Rhabdomyolysis (principal); T51.0X1A Toxic effect of ethanol, accidental (unintentional), initial encounter; Y93.B9 Activity, other involving muscle strengthening exercises; E87.6 Hypokalemia; E86.0 Dehydration; R94.5 Abnormal results of liver function studies; R74.0 Nonspecific elevation of levels of transaminase and lactic acid dehydrogenase [LDH]; Z23 Encounter for immunization